=== PATIENT | male | born 1970 | race Hispanic/Latino ===

== ENCOUNTER 2020-07-07 12:26 | Emergency (ER) | payer BC ==
[2020-07-07] MEDS ORDERED: Dexamethasone 10 MG/ML VIAL ONE (12:52)
== END 2020-07-07 13:02 | disposition home or self-care (01) ==
LOC: ERS 12:26
DX: T78.40XA Allergy, unspecified, initial encounter (principal); I10 Essential (primary) hypertension; Z79.899 Other long term (current) drug therapy
CPT/HCPCS: 99283; J1100

== ENCOUNTER 2020-07-19 10:15 | Emergency (ER) | payer BC | END 2020-07-19 11:20 | disposition home or self-care (01) | LOC: ERS 10:15 | DX: S93.401A Sprain of unspecified ligament of right ankle, initial encounter (principal); I10 Essential (primary) hypertension; Z79.899 Other long term (current) drug therapy; X50.9XXA Other and unspecified overexertion or strenuous movements or postures, initial encounter ==

== ENCOUNTER 2020-07-27 08:05 | Outpatient (CLI) | payer BC | END 2020-07-27 08:06 | disposition home or self-care (01) | LOC: BICRAD 08:05 | PROVIDERS: ATTEND Family Medicine | DX: M79.0 Rheumatism, unspecified (principal); M19.071 Primary osteoarthritis, right ankle and foot; M79.89 Other specified soft tissue disorders ==

== ENCOUNTER 2020-09-02 14:45 | Emergency (ER) | payer OTHER, BC | END 2020-09-02 17:31 | disposition home or self-care (01) | LOC: ERS 14:45 | DX: S16.1XXA Strain of muscle, fascia and tendon at neck level, initial encounter (principal); S40.011A Contusion of right shoulder, initial encounter; V43.53XA Car driver injured in collision with pick-up truck in traffic accident, initial encounter; Z79.899 Other long term (current) drug therapy; I10 Essential (primary) hypertension | CPT/HCPCS: 72125 ==

== ENCOUNTER 2020-09-14 08:23 | Outpatient (CLI) | payer OTHER, BC | END 2020-09-14 08:24 | disposition home or self-care (01) | LOC: BICRAD 08:23 | PROVIDERS: ATTEND Family Medicine | DX: V89.2XXD Person injured in unspecified motor-vehicle accident, traffic, subsequent encounter (principal); M47.812 Spondylosis without myelopathy or radiculopathy, cervical region | CPT/HCPCS: 72040 ==